=== PATIENT | male | born 1980 | race Caucasian/White ===

== ENCOUNTER 2017-02-22 06:03 | Day surgery (SDC) | payer BC ==
[2017-02-22] MEDS ORDERED: Dextrose 5%-Lactated Ringers 1,000 ML IV SCH (06:30)
[2017-02-22] MEDS ORDERED: Glycopyrrolate 0.2 MG/ML 2 ML SYRINGE IVPUSH ONE (07:15)
[2017-02-22] MEDS ORDERED: Midazolam 1 MG/ML 2 ML SDV ONE (07:52)
[2017-02-22] MEDS ORDERED: Propofol 200 MG/20 ML SDV ONE (07:52)
[2017-02-22] MEDS ORDERED: fentaNYL 100 MCG/2 ML SDV ONE (07:52)
[2017-02-22 09:06] VITALS: BP 114/80
--- NOTE | 2017-02-22 18:46 | OR ---
DATE OF PROCEDURE: 02/22/2017 PREOPERATIVE DIAGNOSIS: History of Santizo's esophagus. POSTOPERATIVE DIAGNOSES: 1. History of Santizo's esophagus. 2. Mild antral gastritis. OPERATIVE PROCEDURE: Esophagogastroduodenoscopy with, 1. Biopsies of antrum for CLOtest. 2. Biopsies of esophagogastric junction. ANESTHESIA: IV sedation. INDICATION FOR PROCEDURE: This is a 36-year-old male with a known history of Santizo's esophagus. He is status post Juju fundoplication and now was doing well with some low- dose omeprazole in terms of symptom control. 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 Plan is to proceed with upper GI endoscopy with biopsies as indicated. Potential risks including bleeding and perforation were discussed, and the patient wishes to proceed. DETAILS OF PROCEDURE: The patient was taken to the operating room and placed in a left lateral decubitus position. IV sedation was administered, after which the upper GI endoscope was passed orally through the length of the esophagus and into the stomach with retroflexion view of the fundus, thereafter through the pyloric channel and into the proximal duodenum. The patient was noted to have a normal hypopharynx, larynx, upper esophageal sphincter, and esophageal body at the EG junction. He did have some upward extension of the gastroesophageal junction mucosal line in 3 general waves. This was associated with very minimal if any gross inflammation. The patient did have an intact Juju effect. There was no stricturing or plaquing suggestive of any neoplastic changes. The stomach showed some mild antral gastritis. The pyloric channel and duodenum to the junction of the third and fourth portions were otherwise unremarkable. At this point, biopsies were taken from the antrum and sent for CLOtest for H. pylori and following this, multiple biopsies targeting the areas of possible Santizo's esophagus, and these were sent for histologic evaluation. Minimal bleeding from the biopsy sites was seen and the procedure concluded. The patient was taken to the recovery room in a satisfactory condition. At this point, we will have him continue the present medical management. If the CLOtest is positive, we will contact him and have him started on one of the anti H. pylori regimens. Otherwise, assuming there was no progression in terms of dysplasia seen on today's esophageal biopsies, he should repeat endoscopy in approximately 2 years. Tom Paz MD /[id number]
== END 2017-02-22 09:37 | disposition home or self-care (01) ==
LOC: JP.SDS 06:03
PROVIDERS: ATTEND Surgery
DX: K21.0 Gastro-esophageal reflux disease with esophagitis (principal); K31.89 Other diseases of stomach and duodenum; Z88.1 Allergy status to other antibiotic agents; Z88.8 Allergy status to other drugs, medicaments and biological substances; F41.9 Anxiety disorder, unspecified
CPT/HCPCS: 43239; 87081; J2250; J2704; J3010; 88305

== ENCOUNTER 2017-12-13 07:28 | Day surgery (SDC) | payer BC ==
[~2017-12-13 07:28] MED LIST: Midazolam 1 MG/ML 2 ML SDV ONE; Propofol 200 MG/20 ML SDV ONE; fentaNYL 100 MCG/2 ML SDV ONE
[2017-12-13] MEDS ORDERED: Lactated Ringers 1,000 ML IV SCH (08:00)
[2017-12-13] MEDS ORDERED: Propofol 200 MG/20 ML SDV ONE (09:05)
--- NOTE | 2017-12-13 09:57 | OR ---
DATE OF PROCEDURE: 12/13/2017 PROCEDURE: Colonoscopy. FINDINGS: 1. Normal colonoscopy. 2. No evidence of old or new blood. PREOPERATIVE DIAGNOSIS: Rectal bleeding. POSTOPERATIVE DIAGNOSIS: Rectal bleeding. RISKS: Risks, benefits, alternatives, and limitations including but not limited to infection, bleeding, and perforation were explained to the patient who wished to proceed. PROCEDURE IN DETAIL: The patient was placed in a left lateral decubitus position. Digital rectal exam was performed without abnormality. Scope was introduced and advanced atraumatically to the ileocecal valve. A photo was taken of this. The scope was brought back to the ascending, transverse, descending colon, and retroflexed. The prep was moderately acceptable. No old or new blood. No diverticulosis. The patient did have some small hemorrhoids, but nothing actively bleeding. The patient tolerated the procedure well. Meliton Ann MD /[id number]
[2017-12-13 10:23] VITALS: BP 131/77
== END 2017-12-13 10:25 | disposition home or self-care (01) ==
LOC: JP.SDS 07:28
PROVIDERS: ATTEND Surgery
DX: K64.9 Unspecified hemorrhoids (principal); F17.200 Nicotine dependence, unspecified, uncomplicated; K21.9 Gastro-esophageal reflux disease without esophagitis; Z88.0 Allergy status to penicillin; Z88.5 Allergy status to narcotic agent
CPT/HCPCS: 45378; J2250; J2704; J3010; J7120

== ENCOUNTER 2022-11-06 08:31 | Day surgery (SDC) | payer BC ==
[2022-11-06] MEDS ORDERED: Midazolam 1 MG/ML 2 ML SDV ONE (09:56)
[2022-11-06] MEDS ORDERED: fentaNYL 100 MCG/2 ML SDV ONE (09:56)
[2022-11-06] MEDS ORDERED: Propofol 200 MG/20 ML SDV ONE (09:56)
[2022-11-06] MEDS ORDERED: Dextrose 5%-Lactated Ringers 1,000 ML IV SCH (10:00)
[2022-11-06 13:13] VITALS: BP 112/76; PULSE 60
== END 2022-11-06 11:10 | disposition home or self-care (01) ==
LOC: JP.SDS 08:31
PROVIDERS: ATTEND Surgery
DX: K31.A0 Gastric intestinal metaplasia, unspecified (principal); K29.70 Gastritis, unspecified, without bleeding; K31.89 Other diseases of stomach and duodenum; Z87.19 Personal history of other diseases of the digestive system; Z88.1 Allergy status to other antibiotic agents
CPT/HCPCS: 87081; J2250; J2704; J3010; J7121

== ENCOUNTER 2023-10-19 22:50 | Emergency (ER) | payer BC ==
[2023-10-19 23:38] VITALS: BP 135/89; PULSE 68
== END 2023-10-19 23:55 | disposition home or self-care (01) ==
LOC: JP.ED 22:50
DX: R10.9 Unspecified abdominal pain (principal); K21.9 Gastro-esophageal reflux disease without esophagitis; F17.210 Nicotine dependence, cigarettes, uncomplicated; Z88.0 Allergy status to penicillin; Z88.5 Allergy status to narcotic agent; Z79.899 Other long term (current) drug therapy; Z86.16 Personal history of COVID-19
CPT/HCPCS: 99283

== ENCOUNTER 2024-03-19 06:24 | Day surgery (SDC) | payer BC ==
[2024-03-19] MEDS: Sodium Chloride 0.9% 1,000 ML IV SCH (07:14)
[2024-03-19] MEDS ORDERED: Midazolam 1 MG/ML 2 ML SDV ONE (07:43)
[2024-03-19] MEDS ORDERED: fentaNYL 100 MCG/2 ML SDV ONE (07:43)
[2024-03-19] MEDS ORDERED: Propofol 200 MG/20 ML SDV ONE (07:43)
[2024-03-19 09:00] VITALS: BP 119/84; PULSE 51
== END 2024-03-19 09:10 | disposition home or self-care (01) ==
LOC: JP.SDS 06:24
PROVIDERS: ATTEND Surgery
DX: Z12.11 Encounter for screening for malignant neoplasm of colon (principal); D12.3 Benign neoplasm of transverse colon; K57.30 Diverticulosis of large intestine without perforation or abscess without bleeding; K22.70 Barrett's esophagus without dysplasia; Z80.0 Family history of malignant neoplasm of digestive organs
CPT/HCPCS: 00811; 45385; 88305; J2250; J2704; J3010; J7030

== ENCOUNTER 2024-12-17 06:28 | Day surgery (SDC) | payer BC ==
[2024-12-17] MEDS: Lactated Ringers 1,000 ML IV SCH (06:51)
[2024-12-17] MEDS ORDERED: Midazolam 1 MG/ML 2 ML SDV ONE (06:59)
[2024-12-17] MEDS ORDERED: fentaNYL 100 MCG/2 ML SDV ONE (06:59)
[2024-12-17] MEDS ORDERED: Propofol 200 MG/20 ML SDV ONE (06:59)
[2024-12-17 10:38] VITALS: BP 115/77; PULSE 66
== END 2024-12-17 09:10 | disposition home or self-care (01) ==
LOC: JP.SDS 06:28
PROVIDERS: ATTEND Surgery
DX: K22.70 Barrett's esophagus without dysplasia (principal); K20.90 Esophagitis, unspecified without bleeding; K22.89 Other specified disease of esophagus; F17.200 Nicotine dependence, unspecified, uncomplicated
CPT/HCPCS: 00731; 43239; 88305; J2250; J2704; J3010; J7120